=== PATIENT | female | born 1995 | race Two or more races ===

== ENCOUNTER 2016-07-29 20:20 | Emergency (ER) | payer SELFPAY ==
[~2016-07-29] VITALS: Ht 170.2 cm; Wt 74.8 kg
[2016-07-29 20:30] VITALS: BP 123/80
[2016-07-29 22:01] LABS: APPEARANCE,URINE CLEAR (CLEAR); BILIRUBIN,URINE NEGATIVE (NEGATIVE); BLOOD, URINE NEGATIVE Ery/uL (NEGATIVE); COLOR,URINE YELLOW (YELLOW); KETONES,URINE NEGATIVE (NEGATIVE); LEUKOCYTE ESTERASE ,URINE NEGATIVE (NEGATIVE); NITRITE, URINE NEGATIVE (NEGATIVE); PH,URINE 6.5 (5.0-8.0); PROTEIN,URINE NEGATIVE (NEGATIVE); UGLUCOSE NEGATIVE (NEGATIVE); UROBILINOGEN,URINE 0.2 EU/dL (0.2)
== END 2016-07-29 21:46 | disposition home or self-care (01) ==
LOC: ER 20:20
DX: N92.6 Irregular menstruation, unspecified (principal)
CPT/HCPCS: 81001; 84703; 99283; A4606; Z7610; 81000-TC

== ENCOUNTER 2018-09-18 07:34 | Emergency (ER) | payer SELFPAY ==
[~2018-09-18] VITALS: Ht 170.2 cm; Wt 88.5 kg
--- NOTE | 2018-09-18 07:42 | NUR ---
PT BIB SELF C/O GEN WEAKNESS, ABDOMINAL PAIN AND VOMITING X 2 DAYS, PT IS AAOX4, NOT IN RESPIRATORY DISTRESS, V/S STABLE, KEPT RESTED AND COMFORTABLE, WILL CONTINUE TO MONITOR.
--- NOTE | 2018-09-18 07:46 | NUR ---
DR. TEIXEIRA AT BEDSIDE FOR EVAL.
--- NOTE | 2018-09-18 07:55 | NUR ---
URINE SPECIMEN COLLECTED AND SENT TO LAB.
[2018-09-18] MEDS ORDERED: IV NS 0.9% 1,000 ML BAG IV ONE (08:00)
[2018-09-18] MEDS ORDERED: ONDANSETRON HCL/PF 4 MG/2 ML VIAL IVP ONE (08:00)
--- NOTE | 2018-09-18 08:02 | NUR ---
IV LINE ESTABLISHED, BLOOD DRAWNED AND SENT TO LAB.
[2018-09-18 08:03] LABS: APPEARANCE,URINE Slightly Cloudy (CLEAR); BASOPHILS % (AUTO) 0.1 % (0.0-2.0); BILIRUBIN,URINE SMALL (NEGATIVE); BLOOD, URINE Negative Ery/uL (NEGATIVE); EOSINOPHILS % (AUTO) 2.2 % (0.0-6.0); HEMATOCRIT 43 % (33-45); HEMOGLOBIN 14.5 g/dL (11.5-14.8); KETONES,URINE Negative (NEGATIVE); LEUKOCYTE ESTERASE ,URINE Small (NEGATIVE); LYMPHOCYTES # (AUTO) 0.8 /CMM (0.8-4.8); LYMPHOCYTES % (AUTO) 9.9 % (20.0-44.0); MEAN CORPUSCULAR HGB CONC 34 g/dl (31.0-36.0); MEAN CORPUSCULAR VOLUME 87 fL (82-100); MONOCYTES # (AUTO) 0.7 /CMM (0.1-1.30); MONOCYTES % (AUTO) 8.8 % (2.0-12.0); NEUTROPHILS # (AUTO) 6.7 /CMM (1.8-8.9); NITRITE, URINE Negative (NEGATIVE); PH,URINE 5.5 (5.0-8.0); PLATELET COUNT (AUTO) 187 /CMM (150-450); PROTEIN,URINE Negative (NEGATIVE); RED BLOOD CELL COUNT(AUTO) 4.98 MIL/uL (4.0-5.2); UGLUCOSE Negative (NEGATIVE); WHITE BLOOD COUNT (AUTO) 8.5 K/uL (4.3-11.0)
[2018-09-18] MEDS ORDERED: ONDANSETRON HCL/PF 4 MG/2 ML VIAL ONE (08:03)
[2018-09-18 08:04] LABS: COLOR,URINE Dark Yellow (YELLOW)
[2018-09-18 08:11] LABS: BACTERIA,URINE Few /HPF (None Seen); SQUAMOUS EPITHELIAL CELL,UR Moderate /HPF (None Seen); WBC,URINE 50-80 /HPF (0-3)
[2018-09-18 08:23] LABS: ALBUMIN 3.6 g/dL (3.4-5.0); BILIRUBIN,DIRECT 0.1 mg/dL (0.0-0.2); BILIRUBIN,TOTAL 0.6 mg/dL (0.2-1.0); CALCIUM, SERUM 8.2 mg/dL (8.5-10.1); CREATININE 0.7 mg/dL (0.6-1.3); POTASSIUM 3.9 mmol/L (3.5-5.1); TOTAL PROTEIN, SERUM 7.6 g/dL (6.4-8.2)
[2018-09-18] MEDS ORDERED: CEFTRIAXONE 1 G in IV D5W 50 ML IV SCH (08:30)
[2018-09-18] MEDS ORDERED: CEFTRIAXONE 1GM BAG (ER ONLY) 50 ML IV ONE (08:43)
--- NOTE | 2018-09-18 09:33 | NUR ---
IV removed. Catheter intact and site benign. Pressure and 4x4 applied to site. No bleeding noted. Patient discharged to home in stable condition. Written and verbal after care instructions given. Patient verbalizes understanding of instruction.
[2018-09-18 09:34] VITALS: BP 128/71
== END 2018-09-18 09:36 | disposition home or self-care (01) ==
LOC: ER 07:36
DX: N39.0 Urinary tract infection, site not specified (principal); R11.2 Nausea with vomiting, unspecified; R19.7 Diarrhea, unspecified
CPT/HCPCS: 36415; 80048; 80076; 81001; 83690; 84702; 85025; 96361; 96365; 96375; 99283; J0696; J2405; J7030; 81000-TC; J7060